=== PATIENT | male | born 1990 | race Two or more races ===

== ENCOUNTER 2018-05-16 00:43 | Emergency (ER) | payer BC ==
[~2018-05-16] VITALS: Ht 172.7 cm; Wt 116.6 kg
[2018-05-16 01:28] LABS: Basophils # (auto) 0.1 uL; Basophils % (auto) 0.6 % (0.0-2.0); Eosinophils # (auto) 0.2 uL; Eosinophils % (auto) 1.3 % (0.0-7.0); Hematocrit 48.6 % (41.0-53.0); Hemoglobin 16.3 g/dL (13.5-17.5); Lymphocytes # (auto) 5.4 uL; Lymphocytes % (auto) 42.5 % (10.0-50.0); Mean Corpuscular Hgb Conc. 33.4 g/dL (32.0-36.0); Mean Corpuscular Volume 83.8 fL (80.0-100.0); Monocytes # (auto) 0.7 uL; Monocytes % (auto) 5.8 % (0.0-12.0); Neutrophils # (auto) 6.3 uL; Neutrophils % (auto) 49.8 % (37.0-80.0); Nucleated Red Blood Cells % 0.1 %; Platelet Count (auto) 277 10^3/uL (140-450); Red Cell Distribution Width 13.6 % (11.8-14.3); White Blood Cell 12.7 10^3/uL (4.4-10.8)
[2018-05-16 01:38] LABS: INR 1.01 (0.9-1.15); Partial Thromboplastin Time 29.9 sec (23.78-33.04); Prothrombin Time 10.8 sec (9.27-12.13)
[2018-05-16 01:43] LABS: Albumin 3.8 g/dL (3.4-5.0); Anion Gap 6 (5-15); Blood Urea Nitrogen 14 mg/dL (7-18); Calcium 9.3 mg/dL (8.5-10.1); Carbon Dioxide 28 mmol/L (21-32); Chloride 105 mmol/L (98-107); Glucose 89 mg/dL (74-106); Magnesium 2.4 mg/dL (1.6-2.6); Potassium 3.6 mmol/L (3.5-5.1); Sodium 139 mmol/L (136-145)
[2018-05-16 01:46] LABS: BUN/Creatinine Ratio 17.1; GFR African American 146 mL/min; GFR Non-African American 121 mL/min
[2018-05-16 01:51] LABS: Alanine Aminotransferase 35 U/L (16-61); Alkaline Phosphatase 74 U/L (45-117); Aspartate Aminotransferase 28 U/L (15-37); Bilirubin, Total 0.7 mg/dL (0.2-1.0); Total Protein 7.8 g/dL (6.4-8.2)
[2018-05-16 07:56] VITALS: BP 106/64
== END 2018-05-16 08:06 | disposition home or self-care (01) ==
LOC: ER 00:46
DX: K29.70 Gastritis, unspecified, without bleeding (principal); Z88.2 Allergy status to sulfonamides
CPT/HCPCS: 36415; 71045; 80053; 83735; 83880; 84484; 85025; 85610; 85730; 93005

== ENCOUNTER 2018-07-26 13:59 | Emergency (ER) | payer BC ==
[~2018-07-26] VITALS: Ht 172.7 cm; Wt 114.3 kg
[2018-07-26 14:04] VITALS: BP 132/76
== END 2018-07-26 16:10 | disposition home or self-care (01) ==
LOC: EDBD 13:59 → ER 14:09
DX: F41.1 Generalized anxiety disorder (principal); H60.93 Unspecified otitis externa, bilateral; Z88.2 Allergy status to sulfonamides
CPT/HCPCS: 82962; 93005

== ENCOUNTER 2018-10-22 15:31 | Emergency (ER) | payer BC ==
[~2018-10-22] VITALS: Ht 172.7 cm; Wt 116.6 kg
[2018-10-22 17:15] VITALS: BP 121/70
== END 2018-10-22 18:08 | disposition home or self-care (01) ==
LOC: ER 15:39
DX: R51 Headache (principal)
CPT/HCPCS: 70450